=== PATIENT | male | born 1970 | race Two or more races ===

== ENCOUNTER 2020-12-30 06:01 | Emergency (ER) | payer OTHER ==
[~2020-12-30 06:01] MED LIST: ASPIRIN CHEWABL81 MG PO; DICLOFENAC SODI75 MG PO; GABAPENTIN800 MG PO; GLUCOSAMINE1000 MG PO; IBUPROFEN800 M1 PO; KEFLEX500 MG PO; LISINOPRIL-HCT1 EAC2 PO; METFORMIN HCL500 M1 PO; OMEPRAZOLE40 MG PO; PROPRANOLOL HCL10 MG PO
== END 2020-12-30 06:56 | disposition left against medical advice (07) ==
LOC: FER 06:01
DX: R07.81 Pleurodynia (principal); R06.02 Shortness of breath; M79.601 Pain in right arm; R10.9 Unspecified abdominal pain; R11.10 Vomiting, unspecified; Z79.899 Other long term (current) drug therapy; Z53.8 Procedure and treatment not carried out for other reasons

== ENCOUNTER 2021-01-01 07:24 | Emergency (ER) | payer OTHER ==
[2021-01-01] MEDS ORDERED: PERCOCET 10-321 EACH PO (10:49)
== END 2021-01-01 11:00 | disposition home or self-care (01) ==
LOC: FER 07:24
DX: S20.211A Contusion of right front wall of thorax, initial encounter (principal); I10 Essential (primary) hypertension; E11.40 Type 2 diabetes mellitus with diabetic neuropathy, unspecified; F17.210 Nicotine dependence, cigarettes, uncomplicated; Z79.899 Other long term (current) drug therapy; Z79.84 Long term (current) use of oral hypoglycemic drugs; W18.2XXA Fall in (into) shower or empty bathtub, initial encounter; Y92.002 Bathroom of unspecified non-institutional (private) residence as the place of occurrence of the external cause
CPT/HCPCS: 71101; J1170

== ENCOUNTER 2021-12-12 13:15 | Emergency (ER) | payer OTHER ==
[~2021-12-12 13:15] MED LIST changes: +PERCOCET 10-321 EACH PO
[2021-12-12 13:55] LABS: BASOPHIL 0.7 % (0-2); EOSINOPHIL 1.5 % (0-5); HCT 42.8 % (42.0-52.0); HGB 14.2 g/dl (13.2-18.0); LYMPHOCYTE 25.5 % (15-48); MCH 28.8 pg (25.0-31.0); MCHC 33.2 g/dL (32.0-36.0); MCV 86.8 fL (78.0-100.0); MONOCYTE 7.3 % (0-12); MPV 9.3 fL (6.0-9.5); NEUTROPHIL 63.6 % (41-80); NRBC 0; PLT 309 K/uL (150-400); RBC 4.93 M/uL (4.70-6.00); RDW 13.2 % (11.5-14.0); WBC 9.6 K/uL (4.0-10.5)
[2021-12-12 14:11] LABS: BILIRUBIN NEGATIVE (NEGATIVE); BLOOD NEGATIVE Ery/uL (NEGATIVE); CLARITY CLEAR (CLEAR); COLOR YELLOW (YELLOW); GLUCOSE (U) 3+ mg/dL (NORMAL); LEUKOCYTES NEGATIVE Leu/uL (NEGATIVE); NITRITE NEGATIVE (NEGATIVE); PROTEIN NEGATIVE (NEGATIVE); SPECIFIC GRAVITY 1.025 (1.001-1.030); UROBILINOGEN 0.2 mg/dL (0.2-1.0)
[2021-12-12 14:38] LABS: ALBUMIN 3.8 g/dL (3.4-5.0); BILIRUBIN - TOTAL 0.3 mg/dL (0.2-1.0); BUN/CREAT RATIO (CALC) 22.8 RATIO; CREATININE 0.79 mg/dL (0.67-1.17); GLOBULIN (CALCULATION) 3.4 g/dL; POTASSIUM 4.2 mmol/L (3.5-5.1); TOTAL PROTEIN 7.2 g/dL (6.4-8.2)
[2021-12-12 14:39] LABS: CORONAVIRUS 2019 SARS-COV-2 NEGATIVE (NEGATIVE); INFLUENZA A NAA NEGATIVE (NEGATIVE)
[2021-12-12] MEDS ORDERED: ZPAK PO (15:43)
[2021-12-12] MEDS ORDERED: VENTOLIN HFA IN18 GM INH (15:43)
[2021-12-12] MEDS ORDERED: DIFLUCAN150 MG PO (15:43)
== END 2021-12-12 16:05 | disposition home or self-care (01) ==
LOC: FER 13:15
PROVIDERS: Nurse Practitioner Family
DX: E11.65 Type 2 diabetes mellitus with hyperglycemia (principal); R21 Rash and other nonspecific skin eruption; I10 Essential (primary) hypertension; F17.210 Nicotine dependence, cigarettes, uncomplicated; Z20.822 Contact with and (suspected) exposure to COVID-19; Z79.84 Long term (current) use of oral hypoglycemic drugs
CPT/HCPCS: 36415; 36600; 71045; 80053; 81003; 82009; 82803; 85025; J7030; U0002

== ENCOUNTER 2022-05-13 13:49 | Emergency (ER) | payer OTHER ==
[~2022-05-13 13:49] MED LIST changes: +DIFLUCAN150 MG PO; +VENTOLIN HFA IN18 GM INH; +ZPAK PO
[2022-05-13 14:12] LABS: BASOPHIL 0.8 % (0-2); EOSINOPHIL 1.9 % (0-5); HCT 38.1 % (42.0-52.0); HGB 12.4 g/dl (13.2-18.0); LYMPHOCYTE 30.2 % (15-48); MCH 29.3 pg (25.0-31.0); MCHC 32.5 g/dL (32.0-36.0); MCV 90.1 fL (78.0-100.0); MPV 8.5 fL (6.0-9.5); NEUTROPHIL 57.3 % (41-80); NRBC 0; PLT 230 K/uL (150-400); RBC 4.23 M/uL (4.70-6.00); RDW 14.5 % (11.5-14.0); WBC 7.8 K/uL (4.0-10.5)
[2022-05-13 14:32] LABS: ALBUMIN 3.4 g/dL (3.4-5.0); BILIRUBIN - TOTAL 0.3 mg/dL (0.2-1.0); BUN/CREAT RATIO (CALC) 19.4 RATIO; CREATININE 0.67 mg/dL (0.67-1.17); GLOBULIN (CALCULATION) 3.7 g/dL; POTASSIUM 3.9 mmol/L (3.5-5.1); TOTAL PROTEIN 7.1 g/dL (6.4-8.2)
[2022-05-13 14:34] LABS: LACTIC ACID 1.3 mmol/L (0.4-1.9)
[2022-05-13] MEDS ORDERED: XARELTO15 MG PO (16:05)
== END 2022-05-13 16:39 | disposition home or self-care (01) ==
LOC: FER 13:49
PROVIDERS: Emergency Medicine
DX: I26.93 Single subsegmental thrombotic pulmonary embolism without acute cor pulmonale (principal); I26.94 Multiple subsegmental thrombotic pulmonary emboli without acute cor pulmonale; I10 Essential (primary) hypertension; F17.210 Nicotine dependence, cigarettes, uncomplicated; E11.9 Type 2 diabetes mellitus without complications
CPT/HCPCS: 36415; 71046; 71275; 80053; 83605; 84145; 84484; 85025; 85379; 93005; Q9967